=== PATIENT | female | born 1990 | race Two or more races ===

== ENCOUNTER 2019-02-04 09:01 | Inpatient (IN) | payer MEDICAID, OTHER ==
[~2019-02-04] VITALS: Ht 163.8 cm; Wt 59.4 kg
[2019-02-04] MEDS ORDERED: SODIUM CHLORIDE 0.9% 1,000 ML IV ONE ×3 (09:42→13:26)
[2019-02-04] MEDS ORDERED: ONDANSETRON HCL 4 MG/2 ML VIAL IV ONE (09:45)
[2019-02-04] MEDS ORDERED: KETOROLAC TROMETH 30 MG/ML 1ML VIAL IV ONE (09:45)
[2019-02-04 10:00] LABS: Basophils # (auto) 0 uL; Basophils % (auto) 0.8 % (0.0-2.0); Eosinophils # (auto) 0.2 uL; Hematocrit 42.4 % (36.0-46.0); Lymphocytes # (auto) 1.3 uL; Lymphocytes % (auto) 26.9 % (10.0-50.0); Mean Corpuscular Hemoglobin 29.7 pg (28.0-32.0); Mean Corpuscular Hgb Conc. 33.1 g/dL (32.0-36.0); Mean Corpuscular Volume 89.7 fL (80.0-100.0); Monocytes # (auto) 0.3 uL; Monocytes % (auto) 5.5 % (0.0-12.0); Neutrophils # (auto) 3.2 uL; Neutrophils % (auto) 63.8 % (37.0-80.0); Platelet Count (auto) 333 10^3/uL (140-450); Red Blood Cells 4.72 10^6/uL (4.0-5.20)
[2019-02-04 10:04] LABS: Urine Bacteria NONE SEEN /hpf (None Seen); Urine Blood 3+ /uL (Negative); Urine Budding Yeast MODERATE /hpf (None Seen); Urine Mucus FEW (None Seen); Urine WBC 6 /hpf (0 - 5)
[2019-02-04 10:07] LABS: Albumin 3.8 g/dL (3.4-5.0); BUN/Creatinine Ratio 17.5; Calcium 8.6 mg/dL (8.5-10.1); Potassium 3.7 mmol/L (3.5-5.1)
[2019-02-04 10:09] LABS: Bilirubin, Total 0.6 mg/dL (0.2-1.0); Total Protein 7.3 g/dL (6.4-8.2)
[2019-02-04] MEDS ORDERED: TAMSULOSIN HYDROCHLORIDE 0.4 MG CAP PO ONE (10:30)
[2019-02-04] MEDS ORDERED: ACETAMINOPHEN 500 MG TAB PO PRN (15:45)
[2019-02-04] MEDS ORDERED: MORPHINE SULFATE 4 MG/ML SYR/VIAL IV PRN (15:45)
[2019-02-04] MEDS: SODIUM CHLORIDE 0.9% 1,000 ML IV SCH ×2 (15:45→23:32)
[2019-02-04] MEDS ORDERED: ONDANSETRON HCL 4 MG/2 ML VIAL IV PRN (15:45)
[2019-02-04] MEDS: TAMSULOSIN HYDROCHLORIDE 0.4 MG CAP PO SCH (18:00)
--- NOTE | 2019-02-04 20:00 | NUR ---
RECEIVED PATIENT FROM ED VIA WHEELCHAIR, AWAKE, ALERT, ORIENTED X4, AMBULATORY, SPEAKS CLEARLY. NO S/S OF RESPIRATORY DISTRESS, DENIES SOB AND CHEST PAIN, DENIES FLANK PAIN AND ABDOMINAL PAIN, DENIES NAUSEA AND VOMITING. WITH IV ON THE LEFT AC GAUGE 20. SKIN IS INTACT. ORIENTED ON PLAN OF CARE. BED IS LOCKED AND IN LOWEST LEVEL, SIDE RAILS UP X2, CALL LIGHT WITHIN REACH. WILL CONTINUE TO MONITOR.
[2019-02-04 20:30] VITALS: BP 97/57
[2019-02-04 21:30] VITALS: BP 97/57
[2019-02-05 04:30] VITALS: BP 98/64
--- NOTE | 2019-02-05 07:21 | NUR ---
CARE ENDORSED TO AM SHIFT RN
--- NOTE | 2019-02-05 07:30 | NUR ---
Opening Shift Note Assumed care of patient, awake and alert. SITTING IN BED, HAVING BREAKFAST, NO PAIN, BED IN LOW POSITION, CALL LIGHT WITHIN REACH. No S/S of distress/SOB or pain. Instructed on POC and to call for assist PRN, will continue to monitor for changes Q1hr and PRN.
[2019-02-05 09:00] VITALS: BP 95/61
[2019-02-05] MEDS ORDERED: PANTOPRAZOLE 40 MG TAB PO SCH (10:00)
[2019-02-05 13:00] VITALS: BP 95/61
[2019-02-05] MEDS: SODIUM CHLORIDE 0.9% 1,000 ML IV SCH ×2 (14:46→17:15)
[2019-02-05 17:23] VITALS: BP 101/81
[2019-02-05] MEDS: TAMSULOSIN HYDROCHLORIDE 0.4 MG CAP PO SCH (18:09)
--- NOTE | 2019-02-05 18:31 | NUR ---
Discharge Instructions See e-MAR for any mediations given with this visit. Patient education given on disease process. Patient verbalized understanding. Previous labs reviewed. Patient discharged in stable condition with after care instructions and follow up appointment.
--- NOTE | 2019-02-05 18:31 | NUR ---
IV removal IV DC'd with sterile technique, catheter fully intact. Pressure dressing applied to site. Patient tolerated procedure well. Discharged with aftercare instructions per MD. NOTE:
== END 2019-02-05 19:07 | disposition home or self-care (01) | DRG 465 ==
LOC: ER 09:01 → OVERFLOW 15:40 → CENTRAL 20:00
PROVIDERS: ADMIT Nurse Practitioner Acute Care; ATTEND Hospitalist
DX: N20.2 Calculus of kidney with calculus of ureter (principal); Z87.11 Personal history of peptic ulcer disease; Z87.442 Personal history of urinary calculi
CPT/HCPCS: 36415; 74176; 80053; 81001; 81025; 85025; 96361; 96374; 96375; G0378; J1885; J2405